=== PATIENT | female | born 1975 | race Caucasian/White ===

== ENCOUNTER 2019-06-07 16:46 | Emergency (ER) | payer OTHER ==
[~2019-06-07] VITALS: Ht 162.5 cm; Wt 59.0 kg
[~2019-06-07 16:46] MED LIST: ATIVAN1 MG PO; BACTROBAN CREAM15 GM PO; BACTROBAN OINT0.9 GM T; CLEOCIN150 MG PO; CLINDAMYCIN HC300 MG PO; FLAGYL500 MG PO; HYDROCODONE BIT1 T11 PO; MEDROL DOSEPAK4 MG PO; MOTRIN400 MG PO; Motrin,Rufen800 MG PO; NAPROSYN500 MG PO; SEPTRA DS 800 M1 TAB PO; SUBOXONE1 FI1 SL; ZITHROMAX250 MG PO
[2019-06-07] MEDS ORDERED: Motrin,Rufen800 MG PO (17:20)
== END 2019-06-07 17:17 ==
LOC: ED 16:46
DX: G56.31 Lesion of radial nerve, right upper limb (principal); F17.200 Nicotine dependence, unspecified, uncomplicated; Z88.1 Allergy status to other antibiotic agents

== ENCOUNTER 2019-12-28 23:37 | Emergency (ER) | payer OTHER ==
[~2019-12-28] VITALS: Ht 162.5 cm; Wt 63.5 kg
[2019-12-29 00:13] LABS: BASO % 0.4 % (0.0-1.0); EOS # 0.1 10*3/uL (0.0-0.4); EOS % 1.1 % (1.0-4.0); HEMATOCRIT 40.6 % (37.0-47.0); HEMOGLOBIN 13.2 g/dl (12.0-16.0); LYMPH # 2.8 10*3/uL (1.3-4.4); LYMPH % 39.1 % (27.0-41.0); MEAN CELL VOLUME 93.1 fl (81.0-99.0); MEAN CORPUSCULAR HGB 30.3 pg (27.0-31.0); MEAN CORPUSCULAR HGB CONC 32.5 g/dl (33.0-37.0); MEAN PLATELET VOLUME 10.1 fl (9.6-12.3); MONO # 0.3 10*3/uL (0.1-1.0); MONO % 4.8 % (3.0-9.0); NEUT # 3.8 10*3/uL (2.3-7.9); NEUT % 54.3 % (47.0-73.0); PLATELET COUNT AUTOMATED 197 10*3/uL (130-400); RED BLOOD COUNT 4.36 10*6/uL (4.10-5.10); RED CELL DISTRI WIDTH 11.9 % (0-14.5); WHITE BLOOD COUNT 7.1 10*3/uL (4.8-10.8)
[2019-12-29 00:26] LABS: ACT PARTIAL THROMBO TIME 26.2 SECONDS (20.0-32.1); INTERNATIONAL NORM RATIO 0.9 (2.0-3.5)
[2019-12-29] MEDS ORDERED: CLINDAMYCIN HC300 MG PO (00:31)
[2019-12-29 01:13] LABS: ALBUMIN 3.4 gm/dl (3.1-4.5); ALKALINE PHOSPHATASE 105 U/L (45-117); BUN 12 mg/dl (7-24); CHLORIDE 105 mmol/L (98-107); CREATININE 0.81 mg/dL (0.55-1.02); PHOSPHOROUS 3.1 mg/dL (2.5-4.9); POTASSIUM 4.2 mmol/L (3.5-5.1); SGOT/AST 31 IU/L (3-35); SGPT/ALT 36 U/L (12-78); SODIUM 137 mmol/L (136-145); TOTAL PROTEIN 7.7 gm/dL (6.4-8.2)
== END 2019-12-29 01:30 | disposition home or self-care (01) ==
LOC: ED 23:37
PROVIDERS: Internal Medicine
DX: K13.0 Diseases of lips (principal); M65.331 Trigger finger, right middle finger

== ENCOUNTER 2020-03-08 19:25 | Emergency (ER) | payer OTHER ==
[~2020-03-08] VITALS: Ht 162.5 cm; Wt 68.0 kg
[2020-03-08 20:13] LABS: HEMATOCRIT 34.8 % (37.0-47.0); MEAN CELL VOLUME 93.8 fl (81.0-99.0); MEAN CORPUSCULAR HGB 30.7 pg (27.0-31.0); MEAN CORPUSCULAR HGB CONC 32.8 g/dl (33.0-37.0); PLATELET COUNT AUTOMATED 136 10*3/uL (130-400); RED BLOOD COUNT 3.71 10*6/uL (4.10-5.10); RED CELL DISTRI WIDTH 12.3 % (0-14.5)
[2020-03-08 20:33] LABS: ALBUMIN 3.1 gm/dl (3.1-4.5); ALKALINE PHOSPHATASE 76 U/L (45-117); BUN 10 mg/dl (7-24); CHLORIDE 103 mmol/L (98-107); CREATININE 0.71 mg/dL (0.55-1.02); POTASSIUM 3.7 mmol/L (3.5-5.1); SGOT/AST 37 IU/L (3-35); SGPT/ALT 48 U/L (12-78); SODIUM 136 mmol/L (136-145); TOTAL PROTEIN 6.9 gm/dL (6.4-8.2)
[2020-03-08 20:35] LABS: TROPONIN I < 0.015 ng/ml (<0.045)
[2020-03-08 20:56] LABS: TOTAL CELLS COUNTED 100 #CELLS
[2020-03-08 20:57] LABS: PLATELET SUFFICIENCY LOW (NORMAL)
[2020-03-08 21:07] LABS: URINE AMPHETAMINES > 1000 (1000ng/ml); URINE BARBITURATES < 200 (200ng/ml); URINE BENZODIAZEPINES < 200 (200ng/ml); URINE CANNABINOIDS (THC) < 50 (50ng/ml); URINE COCAINE < 300 (300ng/ml); URINE METHADONE > 300 (300ng/ml); URINE OPIATES > 300 (300ng/ml)
[2020-03-08 21:08] LABS: BILIRUBIN NEGATIVE (NEGATIVE); BLOOD TRACE-LYSED (NEGATIVE); CLARITY SL CLOUDY (CLEAR); COLOR YELLOW (YELLOW); EPITHELIAL CELLS TNTC; GLUCOSE NEGATIVE (NEGATIVE); KETONE NEGATIVE (NEGATIVE); LEUKO ESTERASE NEGATIVE (NEGATIVE); NITRITE NEGATIVE (NEGATIVE); PH 6.5 (5.0-9.0); UROBILINOGEN 0.2 E.U./dl (0.2-1.0)
[2020-03-08 21:09] LABS: BACTERIA 1+; MUCOUS 1+
[2020-03-08 21:25] LABS: URINE PHENCYCLIDINE < 25 (25ng/ml)
[2020-03-08] MEDS ORDERED: VIBRAMYCIN100 MG PO (21:38)
[2020-03-08] MEDS ORDERED: HYGROTON25 MG PO (21:38)
== END 2020-03-08 21:40 | disposition home or self-care (01) ==
LOC: ED 19:25
PROVIDERS: Internal Medicine
DX: S80.861A Insect bite (nonvenomous), right lower leg, initial encounter (principal); R60.0 Localized edema; F17.200 Nicotine dependence, unspecified, uncomplicated; Z88.8 Allergy status to other drugs, medicaments and biological substances; Z79.899 Other long term (current) drug therapy; W57.XXXA Bitten or stung by nonvenomous insect and other nonvenomous arthropods, initial encounter; Y93.89 Activity, other specified; Y92.89 Other specified places as the place of occurrence of the external cause; Y99.8 Other external cause status

== ENCOUNTER 2020-06-17 16:21 | Emergency (ER) | payer OTHER ==
[~2020-06-17 16:21] MED LIST changes: +HYGROTON25 MG PO; +VIBRAMYCIN100 MG PO
[2020-06-17] MEDS ORDERED: CLINDAMYCIN HC300 MG PO ×3 (16:44→18:04)
[2020-06-17] MEDS ORDERED: TYLENOL325 M1 PO ×3 (16:44→18:04)
[2020-06-17] MEDS ORDERED: NAPROXEN250 MG PO ×3 (16:44→18:04)
== END 2020-06-17 18:05 | disposition home or self-care (01) ==
LOC: ED 16:21
DX: H00.031 Abscess of right upper eyelid (principal); Z88.8 Allergy status to other drugs, medicaments and biological substances; Z79.899 Other long term (current) drug therapy

== ENCOUNTER 2021-01-30 17:42 | Emergency (ER) | payer OTHER ==
[~2021-01-30] VITALS: Ht 162.5 cm; Wt 65.8 kg
[~2021-01-30 17:42] MED LIST changes: +NAPROXEN250 MG PO; +TYLENOL325 M1 PO
[2021-01-30 19:22] LABS: BILIRUBIN Negative (Negative); BLOOD Negative (Negative); CLARITY Clear (Clear); COLOR Yellow (Yellow); GLUCOSE Negative (Negative); KETONE Negative (Negative); LEUKO ESTERASE Negative (Negative); NITRITE Negative (Negative); PH 6.5 (4.5-8.0); SPECIFIC GRAVITY 1.025 (1.001-1.030); UROBILINOGEN 0.2 E.U./dl (0.0-1.0)
[2021-01-30 19:30] LABS: BASO % 0.4 % (0.0-1.0); EOS # 0.1 10*3/uL (0.0-0.4); EOS % 1.5 % (1.0-4.0); HEMATOCRIT 34.5 % (37.0-47.0); LYMPH # 1.8 10*3/uL (1.3-4.4); LYMPH % 35.1 % (27.0-41.0); MEAN CELL VOLUME 91.3 fl (81.0-99.0); MEAN CORPUSCULAR HGB 28.8 pg (27.0-31.0); MEAN CORPUSCULAR HGB CONC 31.6 g/dl (33.0-37.0); MEAN PLATELET VOLUME 9.9 fl (9.6-12.3); MONO # 0.3 10*3/uL (0.1-1.0); MONO % 6.1 % (3.0-9.0); NEUT # 2.9 10*3/uL (2.3-7.9); NEUT % 55.8 % (47.0-73.0); PLATELET COUNT AUTOMATED 186 10*3/uL (130-400); RED BLOOD COUNT 3.78 10*6/uL (4.10-5.10); RED CELL DISTRI WIDTH 11.9 % (0-14.5); WHITE BLOOD COUNT 5.2 10*3/uL (4.8-10.8)
[2021-01-30 19:31] LABS: BACTERIA TRACE; RBC 0-2 rbc/hpf (0-2); WBC 0-2 wbc/hpf (0-5)
[2021-01-30 19:42] LABS: ALBUMIN 3.4 gm/dl (3.1-4.5); ALKALINE PHOSPHATASE 113 U/L (45-117); BUN 17 mg/dl (7-24); CHLORIDE 103 mmol/L (98-107); CREATININE 0.87 mg/dL (0.55-1.02); SGOT/AST 31 IU/L (3-35); SGPT/ALT 41 U/L (12-78); SODIUM 135 mmol/L (136-145); TOTAL PROTEIN 7.8 gm/dL (6.4-8.2)
[2021-01-30] MEDS ORDERED: PREDNISONE20 M1 PO (21:29)
[2021-01-30] MEDS ORDERED: ZITHROMAX250 MG PO (21:29)
== END 2021-01-30 21:45 | disposition home or self-care (01) ==
LOC: ED 17:42
PROVIDERS: Nurse Practitioner
DX: J40 Bronchitis, not specified as acute or chronic (principal); F17.200 Nicotine dependence, unspecified, uncomplicated; Z88.8 Allergy status to other drugs, medicaments and biological substances; Z79.899 Other long term (current) drug therapy; Z98.51 Tubal ligation status

== ENCOUNTER 2021-09-06 22:20 | Emergency (ER) | payer OTHER ==
[~2021-09-06] VITALS: Wt 65.8 kg
[~2021-09-06 22:20] MED LIST changes: +PREDNISONE20 M1 PO
[2021-09-06] MEDS ORDERED: PRILOSEC20 M1 PO (22:30)
[2021-09-06] MEDS ORDERED: PREVACID30 M2 PO (22:30)
[2021-09-06] MEDS ORDERED: LEVOFLOXACIN500 MG PO (22:52)
[2021-09-06] MEDS ORDERED: ZOFRAN4 MG PO (22:52)
== END 2021-09-06 23:07 | disposition home or self-care (01) ==
LOC: ED 22:20
DX: J01.90 Acute sinusitis, unspecified (principal); F17.200 Nicotine dependence, unspecified, uncomplicated; Z88.1 Allergy status to other antibiotic agents; Z79.899 Other long term (current) drug therapy

== ENCOUNTER 2021-09-10 14:16 | Emergency (ER) | payer OTHER ==
[~2021-09-10] VITALS: Ht 162.5 cm; Wt 65.8 kg
[~2021-09-10 14:16] MED LIST changes: +LEVOFLOXACIN500 MG PO; +PREVACID30 M2 PO; +PRILOSEC20 M1 PO; +ZOFRAN4 MG PO
[2021-09-10] MEDS ORDERED: PREDNISONE20 M1 PO (16:44)
== END 2021-09-10 16:47 | disposition home or self-care (01) ==
LOC: ED 14:16
DX: J18.9 Pneumonia, unspecified organism (principal); Z20.822 Contact with and (suspected) exposure to COVID-19; F17.200 Nicotine dependence, unspecified, uncomplicated; Z88.1 Allergy status to other antibiotic agents; Z79.899 Other long term (current) drug therapy

== ENCOUNTER 2022-04-19 11:08 | Emergency (ER) | payer OTHER ==
[~2022-04-19] VITALS: Ht 162.5 cm; Wt 77.1 kg
[2022-04-19] MEDS ORDERED: AMOXICILLIN500 M2 PO (11:28)
== END 2022-04-19 11:40 | disposition home or self-care (01) ==
LOC: ED 11:08
DX: K04.7 Periapical abscess without sinus (principal)

== ENCOUNTER 2022-08-27 23:48 | Emergency (ER) | payer OTHER ==
[~2022-08-27] VITALS: Ht 162.5 cm; Wt 77.1 kg
[~2022-08-27 23:48] MED LIST changes: +AMOXICILLIN500 M2 PO
[2022-08-28] MEDS ORDERED: CLINDAMYCIN HC300 MG PO (00:27)
== END 2022-08-28 00:39 | disposition home or self-care (01) ==
LOC: ED 23:48
DX: K04.7 Periapical abscess without sinus (principal); Z88.1 Allergy status to other antibiotic agents; Z79.899 Other long term (current) drug therapy; Z87.891 Personal history of nicotine dependence

== ENCOUNTER 2023-03-02 01:36 | Emergency (ER) | payer OTHER ==
[~2023-03-02] VITALS: Ht 170.1 cm; Wt 68.0 kg
[2023-03-02] MEDS ORDERED: PREDNISONE20 M1 PO (02:22)
[2023-03-02] MEDS ORDERED: ZITHROMAX250 MG PO (02:22)
== END 2023-03-02 02:37 | disposition home or self-care (01) ==
LOC: ED 01:36
DX: J20.8 Acute bronchitis due to other specified organisms (principal); Z88.1 Allergy status to other antibiotic agents; Z98.51 Tubal ligation status; F14.10 Cocaine abuse, uncomplicated; F17.200 Nicotine dependence, unspecified, uncomplicated

== ENCOUNTER 2023-11-09 20:56 | Emergency (ER) | payer OTHER ==
[~2023-11-09] VITALS: Ht 162.5 cm; Wt 72.6 kg
[2023-11-09] MEDS ORDERED: MELOXICAM15 MG PO (21:23)
[2023-11-09] MEDS ORDERED: AMOX-CLAV 875-1 EACH PO (21:23)
== END 2023-11-09 21:56 | disposition home or self-care (01) ==
LOC: ED 20:56
DX: K04.7 Periapical abscess without sinus (principal); K02.9 Dental caries, unspecified; Z88.1 Allergy status to other antibiotic agents; Z98.51 Tubal ligation status; F14.10 Cocaine abuse, uncomplicated; F17.210 Nicotine dependence, cigarettes, uncomplicated

== ENCOUNTER 2024-02-13 18:01 | Emergency (ER) | payer OTHER ==
[~2024-02-13] VITALS: Ht 162.5 cm; Wt 72.6 kg
[~2024-02-13 18:01] MED LIST changes: +AMOX-CLAV 875-1 EACH PO; +MELOXICAM15 MG PO
[2024-02-13] MEDS ORDERED: PENICILLIN VK500 MG PO (18:17)
[2024-02-13] MEDS ORDERED: Motrin,Rufen800 MG PO (18:17)
[2024-02-13] MEDS ORDERED: BENZOCAINE 20% 11.9 GM GEL T STA (18:18)
[2024-02-13] MEDS ORDERED: Lidocaine Hydrochloride 15 ML UDC PO STA (18:18)
[2024-02-13] MEDS ORDERED: PENICILLIN V POTASSIUM 500 MG TAB PO ONE (18:20)
[2024-02-13] MEDS ORDERED: Acetaminophen/Hydrocodone 5 MG/325 MG TABLET PO ONE (18:20)
== END 2024-02-13 18:24 | disposition home or self-care (01) ==
LOC: ED 18:01
DX: K04.7 Periapical abscess without sinus (principal); K03.81 Cracked tooth; F17.200 Nicotine dependence, unspecified, uncomplicated; Z88.1 Allergy status to other antibiotic agents; Z79.899 Other long term (current) drug therapy; Z79.2 Long term (current) use of antibiotics; Z98.51 Tubal ligation status

== ENCOUNTER 2024-03-04 13:04 | Emergency (ER) | payer OTHER ==
[~2024-03-04 13:04] MED LIST changes: +PENICILLIN VK500 MG PO
[2024-03-04] MEDS ORDERED: EPINEPHrine Hydrochloride 1 MG/ML AMP ONE ×2 (13:16→13:22)
[2024-03-04] MEDS ORDERED: diphenhydrAMINE hydrochloride 50 MG/ML VIAL ONE (13:20)
[2024-03-04] MEDS ORDERED: methylPREDNISolone sod succ 125 MG VIAL ONE (13:20)
[2024-03-04] MEDS ORDERED: Ondansetron Hydrochloride 4 MG/2 ML VIAL IV ONE (13:25)
[2024-03-04] MEDS ORDERED: SODIUM CHLORIDE 0.9% 1,000 ML IV ONE (13:27)
[2024-03-04] MEDS ORDERED: Naloxone Hydrochloride 0.4 MG/ML VIAL ONE (13:31)
[2024-03-04] MEDS ORDERED: Naloxone Hydrochloride 0.4 MG/ML VIAL IV ONE (13:45)
[2024-03-04] MEDS ORDERED: diphenhydrAMINE hydrochloride 50 MG/ML VIAL IV ONE (13:45)
[2024-03-04] MEDS ORDERED: EPINEPHrine Hydrochloride 1 MG/ML AMP IM ONE ×2 (13:45)
[2024-03-04] MEDS ORDERED: methylPREDNISolone sod succ 125 MG VIAL IV ONE (13:45)
[2024-03-04] MEDS ORDERED: EPINEPHrine Hydrochloride 1 MG in SODIUM CHLORIDE 0.9% 250 ML IV SCH (13:45)
[2024-03-04] MEDS ORDERED: EPIPEN 2-P0.3 MG/0.3 IJ (16:36)
[2024-03-04] MEDS ORDERED: PREDNISONE50 MG PO (17:01)
[2024-03-04] MEDS ORDERED: ZITHROMAX250 MG PO (17:07)
== END 2024-03-04 16:50 | disposition home or self-care (01) ==
LOC: ED 13:16
DX: T78.2XXA Anaphylactic shock, unspecified, initial encounter (principal); Z88.1 Allergy status to other antibiotic agents; Z98.51 Tubal ligation status; F17.200 Nicotine dependence, unspecified, uncomplicated; F14.10 Cocaine abuse, uncomplicated

== ENCOUNTER 2024-04-21 18:24 | Emergency (ER) | payer OTHER ==
[~2024-04-21 18:24] MED LIST changes: +EPIPEN 2-P0.3 MG/0.3 IJ; +PREDNISONE50 MG PO
[2024-04-21] MEDS ORDERED: Tdap Vaccine 0.5 ML SYR (Adult Vaccine) IM ONE (18:30)
[2024-04-21] MEDS ORDERED: AMOX-CLAV 875-1 EACH PO (19:09)
== END 2024-04-21 19:00 | disposition home or self-care (01) ==
LOC: ED 18:24
DX: S91.311A Laceration without foreign body, right foot, initial encounter (principal); F17.200 Nicotine dependence, unspecified, uncomplicated; F14.10 Cocaine abuse, uncomplicated; Z88.1 Allergy status to other antibiotic agents; Z98.51 Tubal ligation status; W22.8XXA Striking against or struck by other objects, initial encounter; Y93.01 Activity, walking, marching and hiking; Y92.009 Unspecified place in unspecified non-institutional (private) residence as the place of occurrence of the external cause; Y99.8 Other external cause status

== ENCOUNTER 2024-06-29 16:17 | Emergency (ER) | payer OTHER ==
[~2024-06-29] VITALS: Ht 162.5 cm; Wt 65.8 kg
[2024-06-29] MEDS ORDERED: DEBROX15 ML OT (18:02)
[2024-06-29] MEDS ORDERED: SEPTDS PO (18:02)
== END 2024-06-29 18:06 | disposition home or self-care (01) ==
LOC: ED 16:17
DX: H61.22 Impacted cerumen, left ear (principal); H66.93 Otitis media, unspecified, bilateral; F14.10 Cocaine abuse, uncomplicated; F17.200 Nicotine dependence, unspecified, uncomplicated; Z88.1 Allergy status to other antibiotic agents; Z98.51 Tubal ligation status

== ENCOUNTER 2024-09-23 22:04 | Emergency (ER) | payer OTHER ==
[~2024-09-23] VITALS: Ht 162.5 cm; Wt 680.4 kg
[~2024-09-23 22:04] MED LIST changes: +DEBROX15 ML OT; +SEPTDS PO
[2024-09-23] MEDS ORDERED: Tetracaine Hydrochloride 0.5% 4 ML BOT OPH ONE (22:20)
[2024-09-23] MEDS ORDERED: FLUORESCEIN SODIUM 1 MG STRIP OPH ONE (22:20)
[2024-09-23] MEDS ORDERED: OFLOXACIN 0.3% 5 ML BOTTLE OPH ONE (22:25)
[2024-09-23] MEDS ORDERED: IBUPROFEN600 MG PO (22:42)
[2024-09-26] MEDS ORDERED: OCUFLOX 0.3% 5 M5 ML OPH (10:59)
== END 2024-09-23 22:38 | disposition home or self-care (01) ==
LOC: ED 22:04
DX: S05.01XA Injury of conjunctiva and corneal abrasion without foreign body, right eye, initial encounter (principal); F14.10 Cocaine abuse, uncomplicated; F17.200 Nicotine dependence, unspecified, uncomplicated; Z88.1 Allergy status to other antibiotic agents; Z98.51 Tubal ligation status; W50.1XXA Accidental kick by another person, initial encounter; Y93.89 Activity, other specified; Y92.89 Other specified places as the place of occurrence of the external cause; Y99.8 Other external cause status

== ENCOUNTER 2025-05-14 20:34 | Emergency (ER) | payer OTHER ==
[~2025-05-14 20:34] MED LIST changes: +IBUPROFEN600 MG PO; +OCUFLOX 0.3% 5 M5 ML OPH
[2025-05-14] MEDS ORDERED: Sulfamethoxazole/Trimethopri 1 TAB TAB PO ONE (21:10)
[2025-05-14] MEDS ORDERED: SEPTDS PO (21:14)
== END 2025-05-14 21:10 | disposition home or self-care (01) ==
LOC: ED 20:34
DX: L03.116 Cellulitis of left lower limb (principal); L03.115 Cellulitis of right lower limb; Z88.1 Allergy status to other antibiotic agents; Z79.899 Other long term (current) drug therapy; Z87.891 Personal history of nicotine dependence

== ENCOUNTER 2025-07-20 20:00 | Emergency (ER) | payer OTHER ==
[~2025-07-20] VITALS: Ht 162.5 cm; Wt 68.0 kg
[2025-07-20] MEDS ORDERED: VIBRAMYCIN100 MG PO (21:21)
[2025-07-20] MEDS ORDERED: MEDROL DOSEPAK4 MG PO (21:21)
[2025-07-20] MEDS ORDERED: VENT7GM INH (21:21)
== END 2025-07-20 21:28 | disposition home or self-care (01) ==
LOC: ED 20:00
DX: J98.8 Other specified respiratory disorders (principal); H66.91 Otitis media, unspecified, right ear; F17.200 Nicotine dependence, unspecified, uncomplicated; Z88.1 Allergy status to other antibiotic agents

== ENCOUNTER 2025-10-22 12:19 | Emergency (ER) | payer OTHER ==
[~2025-10-22 12:19] MED LIST changes: +VENT7GM INH
[2025-10-22] MEDS ORDERED: PREDNISONE20 M1 PO (12:44)
[2025-10-22] MEDS ORDERED: NAPROSYN500 MG PO (12:44)
[2025-10-22] MEDS ORDERED: METHOCARBAMOL750 M1 PO (12:44)
[2025-10-22] MEDS ORDERED: CLINDAMYCIN HC300 MG PO (12:44)
[2025-10-22] MEDS ORDERED: Dexamethasone Sodium Phospha 20 MG/5 ML VIAL IM ONE (12:45)
== END 2025-10-22 12:49 | disposition home or self-care (01) ==
LOC: ED 12:19
DX: S39.012A Strain of muscle, fascia and tendon of lower back, initial encounter (principal); T23.001A Burn of unspecified degree of right hand, unspecified site, initial encounter; K02.9 Dental caries, unspecified; F17.200 Nicotine dependence, unspecified, uncomplicated; Z88.1 Allergy status to other antibiotic agents; Z79.899 Other long term (current) drug therapy; W22.11XA Striking against or struck by driver side automobile airbag, initial encounter; V43.52XA Car driver injured in collision with other type car in traffic accident, initial encounter; Y93.I9 Activity, other involving external motion; Y92.488 Other paved roadways as the place of occurrence of the external cause; Y99.8 Other external cause status